=== PATIENT | male | born 1970 | race Caucasian/White ===

== ENCOUNTER 2019-03-15 11:48 | Emergency (ER) | payer MEDICARE, MEDICAID ==
[~2019-03-15] VITALS: Ht 180.3 cm; Wt 79.0 kg
[~2019-03-15 11:48] MED LIST: BACL20TA PO; GABA-531 PO; IBUP-516 PO
[2019-03-15 12:37] VITALS: BP 106/54
== END 2019-03-15 16:38 | disposition left against medical advice (07) ==
LOC: ER 13:34
DX: Z48.01 Encounter for change or removal of surgical wound dressing (principal); Z53.21 Procedure and treatment not carried out due to patient leaving prior to being seen by health care provider

== ENCOUNTER 2023-10-27 12:16 | Emergency (ER) | payer MEDICARE, MEDICAID ==
[~2023-10-27] VITALS: Ht 177.8 cm; Wt 91.0 kg
[~2023-10-27 12:16] MED LIST changes: -GABA-531 PO; +GABA-532 PO; +IBUP-2778 PO; -IBUP-516 PO
[2023-10-27 12:27] VITALS: TEMP 98.7; O2SAT 98
[2023-10-27 14:57] LABS: BASOPHILS % 0.3 % (0.0-2.0); EOSINOPHILS % 2.2 % (0.0-5.0); HEMATOCRIT. 46.1 % (42.0-52.0); HEMOGLOBIN. 15.2 g/dL (14.0-18.0); LYMPHOCYTES % 23.4 % (20.0-50.0); MEAN CORPUSCULAR HEMOGLOBIN 30.3 pg (28.0-32.0); MEAN CORPUSCULAR VOLUME 91.8 fL (80.0-94.0); MEAN PLATELET VOLUME 8.9 fl (7.4-10.4); NEUTROPHILS % 63.1 % (40.0-76.0); PLATELET 156 x1000/uL (130-400); RED BLOOD CELL COUNT 5.02 mill/uL (4.7-6.1); RED CELL DISTRIBUTION WIDTH 13.8 % (11.6-14.6); WHITE BLOOD COUNT 5.9 x1000/uL (4.5-11.0)
[2023-10-27 15:02] LABS: CHLORIDE 107 mEq/L (98-107); POTASSIUM 4.7 mEq/L (3.5-5.1); SODIUM 138 mEq/L (136-145)
[2023-10-27 15:03] LABS: CARBON DIOXIDE 27 mEq/L (21-32)
[2023-10-27 15:04] LABS: CALCIUM 9.2 mg/dL (8.7-10.4)
[2023-10-27 15:08] LABS: CREATININE 0.7 mg/dL (0.6-1.3); GLUCOSE 88 mg/dL (70-105); UREA NITROGEN BLOOD 7 mg/dL (9-23)
[2023-10-27 16:38] VITALS: BP 123/81; PULSE 88; RESP 16; O2SAT 100
[2023-10-27] MEDS ORDERED: IOHEXOL-300 100 ML BOTTLE ONE (22:54)
== END 2023-10-27 18:54 | disposition home or self-care (01) ==
LOC: ER 12:40
DX: R68.84 Jaw pain (principal); E78.00 Pure hypercholesterolemia, unspecified; I10 Essential (primary) hypertension; Z98.890 Other specified postprocedural states
CPT/HCPCS: 99285; 70487; 80048; 85025; 36415; 70491; Q9967

== ENCOUNTER 2024-04-03 11:29 | Emergency (ER) | payer MEDICARE, MEDICAID ==
[~2024-04-03] VITALS: Ht 177.8 cm; Wt 100.0 kg
[~2024-04-03 11:29] MED LIST changes: +GABA-1180 PO; -GABA-532 PO
[2024-04-03 11:32] VITALS: O2SAT 100
[2024-04-03 12:22] LABS: BASOPHILS % 0.3 % (0.0-2.0); EOSINOPHILS % 1.1 % (0.0-5.0); HEMATOCRIT. 45.8 % (42.0-52.0); HEMOGLOBIN. 15.2 g/dL (14.0-18.0); LYMPHOCYTES % 25.6 % (20.0-50.0); MEAN CORPUSCULAR HEMOGLOBIN 29.7 pg (28.0-32.0); MEAN CORPUSCULAR HGB CONC 33.3 g/dL (31.0-37.0); MEAN CORPUSCULAR VOLUME 89.3 fL (80.0-94.0); MEAN PLATELET VOLUME 9.5 fl (7.4-10.4); MONOCYTES % 7.9 % (2.0-8.0); NEUTROPHILS % 65.1 % (40.0-76.0); PLATELET 153 x1000/uL (130-400); RED BLOOD CELL COUNT 5.13 mill/uL (4.7-6.1); RED CELL DISTRIBUTION WIDTH 14.4 % (11.6-14.6)
[2024-04-03 12:59] LABS: CHLORIDE 105 mEq/L (98-107); SODIUM 139 mEq/L (136-145)
[2024-04-03 13:00] LABS: CALCIUM 9.2 mg/dL (8.7-10.4); CARBON DIOXIDE 23 mEq/L (21-32)
[2024-04-03 13:05] LABS: CREATININE 0.8 mg/dL (0.6-1.3); GLUCOSE 98 mg/dL (70-105); UREA NITROGEN BLOOD 12 mg/dL (9-23)
[2024-04-03 13:14] LABS: INR 0.9; PROTHROMBIN TIME 10.3 sec (9.6-11.0)
[2024-04-03 13:17] LABS: TROPONIN I HIGH SENSITIVITY < 4 ng/L (3.0-53)
[2024-04-03] MEDS: SODIUM CHLORIDE 0.9% 1,000 ML IV ONE (13:59)
[2024-04-03 16:15] LABS: CLARITY URINE CLEAR (CLEAR); COLOR URINE YELLOW (YELLOW); GLUCOSE URINE NEGATIVE (NEGATIVE); KETONES URINE NEGATIVE (NEGATIVE); LEUKOCYTE ESTERASE URINE 2+ (NEGATIVE); NITRITE URINE POSITIVE (NEGATIVE); OCCULT BLOOD URINE NEGATIVE (NEGATIVE); PH URINE >=9.0 (4.5-8.0); PROTEIN URINE NEGATIVE (NEGATIVE)
[2024-04-03 16:38] LABS: SQUAMOUS EPITHELIAL CELL URINE FEW /lpf (RARE/1+)
[2024-04-03 16:40] LABS: BACTERIA URINE 3+; RBC URINE 0-2 /hpf (0-2); YEAST URINE NONE SEEN
[2024-04-03] MEDS ORDERED: SULF1TAB48 MT (17:14)
[2024-04-03] MEDS ORDERED: CEFTRIAXONE 1GM/50ML 50 ML IV NR (17:15)
[2024-04-03 18:01] VITALS: BP 111/66; PULSE 84; RESP 20; TEMP 36.9; O2SAT 100
== END 2024-04-03 20:48 | disposition home or self-care (01) ==
LOC: ER 11:29
DX: E86.0 Dehydration (principal); E78.00 Pure hypercholesterolemia, unspecified; I10 Essential (primary) hypertension; Z88.5 Allergy status to narcotic agent; Z98.890 Other specified postprocedural states
CPT/HCPCS: 99285; 96360; 71045; 80048; 81003; 83880; 85025; 85610; 84484; 36415; 93005; J7030

== ENCOUNTER 2024-06-13 13:27 | Emergency (ER) | payer MEDICARE, MEDICAID ==
[~2024-06-13] VITALS: Ht 180.3 cm; Wt 81.6 kg
[~2024-06-13 13:27] MED LIST changes: +SULF1TAB48 MT
[2024-06-13 13:29] VITALS: O2SAT 97
[2024-06-13 13:44] VITALS: BP 131/80; PULSE 90; RESP 16; TEMP 36.7; O2SAT 98
[2024-06-13] MEDS: KETOROLAC 15MG/ML VIAL IM ONE (15:27)
== END 2024-06-13 15:41 | disposition home or self-care (01) ==
LOC: ER 13:27
DX: R68.84 Jaw pain (principal); E78.00 Pure hypercholesterolemia, unspecified; G82.20 Paraplegia, unspecified; I10 Essential (primary) hypertension; Z88.5 Allergy status to narcotic agent
CPT/HCPCS: 99283; 96372; J1885